=== PATIENT | male | born 1965 | race American Indian/Alaskan Native ===

== ENCOUNTER 2016-03-20 12:37 | Emergency (ER) | payer MEDICARE ==
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
[2016-03-20 21:11] LABS: Bilirubin,Urine NEG (Negative); Blood,Urine NEG (Negative); Ketones,Urine 20 mg/dL (Negative); Leukocyte Esterase,Urine SM (Negative); Mucus,Urine 3+ /HPF; Nitrite,Urine NEG (Negative); Protein,Urine <15 mg/dL mg/dL (Negative); Urobilinogen,Urine < 2.0 mg/dL (<2.0)
[2016-03-20] MEDS ORDERED: ROCEPHIN IM STA (22:00)
[2016-03-20] MEDS ORDERED: XYLOCAINE 1% MPF 5 mL INFILTRATI ONE (22:01)
[2016-03-20] MEDS ORDERED: ZITHROMAX PO ONE (22:01)
[2016-03-20 22:22] VITALS: BP 124/78
== END 2016-03-20 22:30 | disposition home or self-care (01) ==
LOC: ED 12:37
DX: N30.00 Acute cystitis without hematuria (principal); R36.9 Urethral discharge, unspecified; R30.0 Dysuria; Z20.2 Contact with and (suspected) exposure to infections with a predominantly sexual mode of transmission; Z88.8 Allergy status to other drugs, medicaments and biological substances
CPT/HCPCS: 81001; 87086; 96372; 99284; J0696

== ENCOUNTER 2017-02-11 12:40 | Emergency (ER) | payer MEDICARE ==
[2017-02-11 16:07] LABS: Hematocrit 44.9 % (35.5-45.6); Hemoglobin 14.8 gm/dl (11.8-15.2); Mean Corpuscular HGB Conc 33 % (32-34); Mean Corpuscular Hemoglobin 30 pg (28-32); Mean Corpuscular Volume 92 fl (84-94); Platelet Count 219 K/mm3 (140-440); Red Blood Count 4.91 M/mm3 (3.65-5.03); Red Cell Distribution Width 14.2 % (13.2-15.2); White Blood Count 6.3 K/mm3 (4.5-11.0)
[2017-02-11 16:19] LABS: Anion Gap 17 mmol/L; BUN/Creatinine Ratio 14; Blood Urea Nitrogen 15 mg/dL (9-20); Calcium 9.4 mg/dL (8.4-10.2); Carbon Dioxide 28 mmol/L (22-30); Chloride 99.7 mmol/L (98-107); Glucose 78 mg/dL (75-100); Potassium 3.6 mmol/L (3.6-5.0); Sodium 141 mmol/L (137-145)
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
--- NOTE | 2017-02-11 16:43 | Cat Scan Report ---
FINAL REPORT EXAM: CT HEAD/BRAIN WO CON HISTORY: fall, +LOC TECHNIQUE: CT head without contrast PRIORS: None. FINDINGS: No acute intra-axial or extra-axial hemorrhage is identified. There is no evidence of midline shift or mass effect. The ventricles and sulci are within normal limits. Coates-white matter differentiation is intact. No acute parenchymal abnormalities seen. Bony calvarium is grossly intact. Visualized portions of the mastoids and paranasal sinuses are unremarkable. Noted is volume loss in calcification right optic globe IMPRESSION: No acute intracranial abnormality identified
[2017-02-11 17:29] LABS: Blastocytes % (Manual) 0 %
[2017-02-11 17:30] LABS: Ovalocytes Few; Poikilocytosis Few
[2017-02-11 17:31] LABS: Diff Status Complete
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
[2017-02-11 21:56] VITALS: BP 130/83
[2017-02-11] MEDS ORDERED: MOTRIN PO ONE (21:57)
== END 2017-02-11 22:07 | disposition home or self-care (01) ==
LOC: ED 12:40
DX: S20.211A Contusion of right front wall of thorax, initial encounter (principal); S09.90XA Unspecified injury of head, initial encounter; S19.9XXA Unspecified injury of neck, initial encounter; F14.10 Cocaine abuse, uncomplicated; Z88.8 Allergy status to other drugs, medicaments and biological substances; Y08.89XA Assault by other specified means, initial encounter; Y93.89 Activity, other specified; Y99.8 Other external cause status; Y92.89 Other specified places as the place of occurrence of the external cause; Z21 Asymptomatic human immunodeficiency virus [HIV] infection status
CPT/HCPCS: 36415; 70450; 72125; 80048; 85007; 85025